=== PATIENT | male | born 1985 | race Caucasian/White ===

== ENCOUNTER 2017-04-07 15:37 | Emergency (ER) | payer SELFPAY ==
[~2017-04-07] VITALS: Ht 172.7 cm; Wt 81.6 kg
[~2017-04-07 15:37] MED LIST: ALBUTEROL SULF8.5 GM INH; ALBUTEROL2.5 MG/3 M INH; NORCO 5-325 TA1 EACH ORAL; PREDNISONE20 MG ORAL; ZANTAC150 MG ORAL
[2017-04-07 16:02] VITALS: BP 114/75
--- NOTE | 2017-04-07 16:48 | Emergency Room Report ---
History of Present Illness General Chief Complaint: Skin Rash/Abscess Source: Patient Present Illness HPI 31 YO Male presents to the ED c/o Itchy rash to the bilateral upper extremities and posterior neck x1 month. Patient also states that he has small area in the lower abdomen as well. Patient reports moderate itching. He states that he has had rashes in the past which usually resolve however this one has not. Eyes fevers, chills, joint pain, flulike symptoms. Patient denies abdominal pain. he denies swelling of the lips or tongue. He denies wheezing or difficulty breathing. Denies CP, Palpitations, LOC, AMS, dizziness, Changes in Vision, Sensation, paresthesias, or a sudden severe headache. Allergies: Coded Allergies: No Known Allergies (Unverified , 03/28/14) Patient History Past Medical History: see triage record Past Surgical History: none Pertinent Family History: none Reviewed Nursing Documentation: PMH: Agreed, PSxH: Agreed Nursing Documentation-PMH Hx Asthma: Yes Review of Systems All Other Systems: negative except mentioned in HPI Physical Exam Vital Signs Date Time Temp Pulse Resp B/P Pulse Ox O2 Delivery O2 Flow Rate FiO2 04/07/17 15:54 98.2 69 20 114/75 98 Room Air Sp02 EP Interpretation: reviewed, normal General Appearance: no apparent distress, alert, GCS 15, non-toxic Head: normocephalic, atraumatic Eyes: bilateral eye PERRL, bilateral eye normal inspection ENT: hearing grossly normal, normal pharynx, no angioedema, normal voice Neck: full range of motion, supple/symm/no masses Respiratory: lungs clear, normal breath sounds, speaking full sentences Cardiovascular #1: regular rate, rhythm, no edema Gastrointestinal: normal bowel sounds, non tender, soft, no guarding, no rebound Rectal: deferred Genitourinary: normal inspection, no CVA tenderness Musculoskeletal: back normal, gait/station normal, normal range of motion, non- tender, no calf tenderness Neurologic: alert, oriented x3, responsive, motor strength/tone normal, sensory intact, speech normal Psychiatric: judgement/insight normal, memory normal, mood/affect normal Skin: normal color, warm/dry, well hydrated, rash - maculopapulo blanching rash to the lateral UE's and the posterior neck, small 5cm area on the anterior lower abdomen. Lymphatic: no adenopathy Medical Decision Making PA Attestation Dr. pascual is my supervising Physician whom patient management has been discussed with. Diagnostic Impression: Primary Impression: Dermatitis Additional Impression: Rash and other nonspecific skin eruption ER Course 31 YO Male presents to the ED c/o Itchy rash to the bilateral upper extremities and posterior neck x1 month. Patient also states that he has small area in the lower abdomen as well. Patient reports moderate itching. He states that he has had rashes in the past which usually resolve however this one has not. Eyes fevers, chills, joint pain, flulike symptoms. Patient denies abdominal pain. he denies swelling of the lips or tongue. He denies wheezing or difficulty breathing. Denies CP, Palpitations, LOC, AMS, dizziness, Changes in Vision, Sensation, paresthesias, or a sudden severe headache. Ddx considered but are not limited to cellulitis, scabies, shingles, varicella, dermatitis, urticaria, eczema, tinea Vital signs: are WNL, pt. is afebrile H&PE are most consistent with dermatitis suspicious for heat dermatitis, as areas affected are primarily not covered by t-shirt. ORDERS: none required at this time, the diagnosis is clinical ED INTERVENTIONS: None required at this time. d/w pt. that will treat him conservatively for his rash, that he is advised to follow up with dermatology in addition to ED visit. d/w pt. to return to ED with worsening or new symptoms. DISCHARGE: At this time pt. is stable for d/c to home. Will provide printed patient care instructions, and any necessary prescriptions. Care plan and follow up instructions have been discussed with the patient prior to discharge. Last Vital Signs Date Time Temp Pulse Resp B/P Pulse Ox O2 Delivery O2 Flow Rate FiO2 04/07/17 16:02 98.2 20 114/75 98 Room Air 04/07/17 15:54 69 Disposition: HOME, SELF-CARE Condition: Stable Scripts Diphenhydramine Hcl* (BENADRYL*) 25 Mg Capsule 25 MG ORAL Q6H Y for Itching, #30 CAP Prov: Rosa Isela Reynolds.[email or web address] 04/07/17 Triamcinolone Acet (Triamcinolone Acetonide) 80 Gm Cream..g. 1 APPLIC TP BID, #80 GM Prov: Rosa Isela Reynolds 04/07/17 Patient Instructions: Rash Additional Instructions: Take medications as directed. Follow up with a Primary Care Provider in 3-5 days, RADIOLOGICAL TECHNOLOGIST EVALUATION IS RECOMMENDED even if your symptoms have resolved. --Please review list of primary care clinics, if you do not already have a primary care provider Return sooner to ED if new symptoms occur, or current symptoms become worse. Do not drink alcohol, drive, or operate heavy machinery while taking Benadryl as this may cause drowsiness. - Please note that this Emergency Department Report was dictated using [employer] oil operator technology software, occasionally this can lead to erroneous entry secondary to interpretation by the dictation equipment. Rosa Isela Reynolds Apr 07, 2017 16:48
[2017-04-07] MEDS ORDERED: KENALOG 0.1% CR15 GM TP (16:49)
[2017-04-07] MEDS ORDERED: BENADRYL25 MG ORAL (16:49)
[2017-04-07 16:54] VITALS: BP 114/75
== END 2017-04-07 16:54 | disposition home or self-care (01) ==
LOC: EMR 16:31
DX: L30.9 Dermatitis, unspecified (principal); J45.909 Unspecified asthma, uncomplicated
CPT/HCPCS: 99284